=== PATIENT | female | born 1940 | race Two or more races ===

== ENCOUNTER → 2016-09-12 | Day surgery (SDC) | payer OTHER ==
[~2016-09-12] MED LIST: ASPI81CH CHEW; BUPIVACAINE/EPINEPHRINE 0.25% 50 ML VIAL ONE; FLUT50SP EACH NARE; FOSA70TA PO; HYDR25TA5 PO; LACTATED RINGER'S 1000 ML INJ 1,000 ML ONE; LOSA25TA PO; MECL12.574 PO; MIDAZOLAM HCL 2 MG/2 ML VIAL ONE; MIRA33504 PO; MOBI15TA PO; ONDANSETRON HCL 4 MG/2 ML VIAL IV PUSH ONE; PROM12.55 PO; PROPOFOL 100 MG/10 ML INJ IV ONE; TRIAMCINOLONE ACETONIDE 40 MG/ML VIAL ONE; ceFAZolin INJ 1,000 MG VIAL ONE; oxyCODONE/ACETAMINOPHEN 5 MG/325 MG TAB ONE
--- NOTE | 2016-09-12 10:52 | TN ---
cc: RAT SUAZO M.D. DATE OF SURGERY 09/12/2016 PREOPERATIVE DIAGNOSIS 1. Left knee degenerative medial and lateral meniscus tears. 2. Right knee degenerative arthritis POSTOPERATIVE DIAGNOSIS 1. Left knee large medial and lateral meniscal tears. 2. 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 Left knee synovectomy patellofemoral joint and intercondylar notch. 4. Right knee degenerative arthritis. PROCEDURE PERFORMED 1. Left knee arthroscopy with partial medial and lateral meniscectomies. 2. Left knee arthroscopic chondroplasty medial femoral condyle, medial tibial plateau, and patellofemoral joint. 3. Left knee arthroscopic synovectomy patellofemoral joint and intercondylar notch. 4. Right knee injection of local anesthetic and steroid. SURGEON Art Suazo MD ANESTHESIA General via laryngeal mask augmented by local infiltration FLUID REPLACEMENT 800 cc of crystalloid. SPECIMEN No specimens were sent. COUNTS All counts were correct. COMPLICATIONS There were no intraoperative complications. TOURNIQUET TIME 34 minutes at 300 mmHg IMPLANTS No implants were utilized. INDICATIONS FOR THE PROCEDURE Mrs. Wynn is a 76-year-old woman who has had a longstanding history of bilateral degenerative arthritis of the knees worse on the left than the right. She has had limited, but good relief with anti-inflammatory injections in the knee, but continues to have locking sensation of the knee, significant pain medial more than lateral and swelling. We have discussed the options for surgical intervention at this time which include the possibility of ongoing conservative care with intermittent injections, possibility of viscosupplementation, however, she has such pronounced mechanical symptoms that the viscosupplementation would be not likely to be very helpful. Although she is willing to consider joint replacement, I feel as though it is a bit premature due to the fact that she only has what appears to be significant medial disease radiographically and I feel that she will do remarkably better once her meniscal pathology has been addressed. I will also get a better opportunity to stage the degree of arthritis in her knee to make a determination if she is a candidate for viscosupplementation or if we would be better off to avoid further conservative care. She, as well as her daughter, were fully aware of the risks of the procedure including bleeding, infection, neurovascular injury, thromboembolic complications, failure to have relief, possible worsening of her baseline pain and a full written informed consent was obtained. When they came into the surgery center today, they did mention that her right knee has become progressively worse and would like to consider the possibility of a steroid injection while under anesthesia and we went ahead and consented her for that as well. DESCRIPTION OF THE PROCEDURE After the patient was appropriately identified in the holding area, we had correctly marked her left knee for surgery and her right knee for injection. She was given one gram of intravenous Ancef as prophylactic antibiotic and then she was taken into the operating suite. There she was placed under general laryngeal mask anesthetic by Dr. Moctezuma. We went ahead and did a time-out at this point in time where we confirmed that the right knee was for injection and the left knee was for surgery and we went ahead and briefly addressed the right knee first. I triple prepped the lateral aspect of the right knee with alcohol and then the knee was then injected with 3 cc of 0.25% Marcaine with epinephrine and 1 cc of Kenalog. She tolerated it well. A Band-Aid was applied. There was no evidence of any bleeding. Attention was now directed to the left lower extremity. A well-padded thigh-high tourniquet was applied high on the left thigh and then her left leg was prepped with alcohol and Hibiclens and draped in the normal standard fashion including the use of impervious stockinette from the foot all the way up to the mid midportion of the calf. At this time, we went ahead and elevated her left leg and exsanguinated with an Eugene wrap and the tourniquet was raised to 300 mmHg. Standard anteromedial and anterolateral joint line portals were established under direct vision. The scope was introduced. A small effusion was evacuated. Inflow was initiated and a survey of the joint was as follows. The suprapatellar pouch had some chronic appearing synovitis including an inflamed appearing fat pad that was hypertrophic and impinged within the joint space. As a result I elected to debride some of the fat pad. There was some grade 2A & 2B chondromalacia of the patellofemoral joint. Some of the tissue was unstable and it was debrided with an oscillating shaver. I went ahead and followed the tracking of the patella which was relatively midline. I did not see any evidence of a full-thickness cartilage loss anywhere in the anterior aspect of the joint. In the medial compartment, there was a very large macerated displaced tear of the medial meniscus which was involving the majority of the posterior half of the medial meniscus. I went ahead and debrided this with both hand instruments and then further contoured it with a shaver and then although we had a small meniscal rim that remained, there was little ongoing meniscal function. There was chondromalacia grade 3A on the medial tibial plateau on the posterior one-third and chondromalacia grade 3A on the posterior one half of the weightbearing surface of the distal femur. It did not in any way make up the entire weightbearing surface of the knee. Limited chondroplasty was performed in these areas to remove unstable tissue. At this time, the intercondylar notch was now explored. There was an intact anterior cruciate ligament although some of the superficial fibers were frayed and there was some slight attenuation of it. It did tension appropriately with anterior drawer. There was some hypertrophic synovial tissue in the notch which was debrided.The lateral compartment was now entered. There was a large macerated displaced tear of the lateral meniscus that was based more from the midportion of the medial meniscus. The posterior horn was involved as well. I went ahead and debrided it with an oscillating shaver. This did the majority of the debridement, although some of the midbody was contoured with hand instruments. The meniscal rim was larger on the lateral side of the knee and there was essentially no significant chondromalacia on the lateral compartment to speak of. Following the partial meniscectomy, the meniscus did seem to function relatively well and there was no evidence of any loose bodies. At this time, the knee was thoroughly irrigated and suctioned decompressed several times. I reinspected all the compartments again and there was no evidence of any further pathology to be found. The instruments were removed after a final decompression and the incisions were closed with 3-0 nylon simple sutures and 30 cc of 0.25% Marcaine with epinephrine were then infiltrated intraarticularly and subcutaneously for postop pain relief. The wounds were dressed with Xeroform, 4x4s, ABD and Eugene wrap. The tourniquet was let down. There was brisk return of capillary refill and reestablished palpable distal pulses. She awoke from anesthesia and was taken to recovery in stable condition. Appropriate postoperative orders have been written. I am hopeful she will have significant improvement of her baseline symptoms. Art Suazo MD Electronically Signed MD ANETA Lozada/MANAV /10:09 AM /10:38 AM [email or web address]
== END | disposition home or self-care (01) ==
LOC: ESDC 07:06
PROVIDERS: ATTEND Orthopaedic Surgery Sports Medicine
DX: S83.242A Other tear of medial meniscus, current injury, left knee, initial encounter (principal); S83.282A Other tear of lateral meniscus, current injury, left knee, initial encounter; M17.11 Unilateral primary osteoarthritis, right knee; M94.262 Chondromalacia, left knee
CPT/HCPCS: 01400; 20610; 29880; J0690; J2250; J2405; J3010; J3301; J7120

== ENCOUNTER → 2017-01-23 | Day surgery (SDC) | payer OTHER ==
[~2017-01-23] MED LIST changes: -BUPIVACAINE/EPINEPHRINE 0.25% 50 ML VIAL ONE; +BUPIVACAINE/EPINEPHRINE 0.25% PF 30 ML VIAL INFIL ONE; -PROPOFOL 100 MG/10 ML INJ IV ONE; +PROPOFOL 200 MG/20 ML AMP IV ONE; +SENN1TAB17 PO; -TRIAMCINOLONE ACETONIDE 40 MG/ML VIAL ONE; +ZOSTINJ SQ
--- NOTE | 2017-01-23 10:47 | TN ---
cc: SUSIE RANDALL M.D. DATE OF SURGERY: 01/23/2017 PREOPERATIVE DIAGNOSIS Right knee degenerative lateral meniscus tear. POSTOPERATIVE DIAGNOSIS 1. Right knee bucket-handle tear lateral meniscus and degenerative medial meniscus tear. 2. Chondromalacia patellofemoral joint, grade IIB. 3. Chondromalacia medial femoral condyle and medial tibial plateau, grade IIIA. PROCEDURE PERFORMED 1. Right knee arthroscopy with partial medial and lateral meniscectomies including a subtotal lateral meniscectomy. 2. Right knee arthroscopic chondroplasty patellofemoral joint. 3. Right knee arthroscopic limited synovectomy. SURGEON Gabriele. ANESTHESIA General via laryngeal mask augmented by local infiltration. ESTIMATED BLOOD LOSS Minimal. FLUID REPLACEMENT 800 cc crystalloid. IMPLANTS There were no implants utilized. COUNTS All counts were correct. COMPLICATIONS There were no intraoperative complications. TOURNIQUET TIME 41 minutes at 300 mmHg. INDICATIONS FOR THE PROCEDURE Mrs. Darrius Wynn is a 76-year-old woman who has had a longstanding history of right knee pain and mechanical symptoms. She underwent a left knee arthroscopy for debridement four or five months ago with excellent improvement of her discomfort and she has very similar findings on her contralateral right knee. As a result of her persistent knee joint tenderness, worse laterally than medially, she is being taken to the operating room for arthroscopic debridement of the knee. She was aware of the risks, benefits, potential complications and limitations of the procedure and full written informed consent was obtained. She was very well aware that there may be the potential of limited improvement following arthroscopic debridement of the knee but based on her physical examination as well as her MRI findings I feel quite confident that we will be able to give her improvement similar to what she is experiencing on her left knee which continues to do well. DESCRIPTION OF THE PROCEDURE After the patient was appropriately identified in the holding area she correctly marked her right knee and I had initialed it as well. She was given one gram of Ancef as intravenous prophylactic antibiotic. She was then taken to the operating suite where she was placed under general laryngeal mask anesthetic and then her right leg had a well-padded thigh-high tourniquet applied to it. She was then prepped with alcohol and Hibiclens and then draped in normal standard fashion with the use of an impervious stockinette from the foot all the way up to the mid leg. At this time we held a brief time out to confirm the right knee was the correct site and the team was in agreement and the case began. The leg was elevated and exsanguinated with an Eugene wrap and the tourniquet was raised to 300 mmHg. Standard anteromedial and anterolateral joint line portals were established under direct vision. The scope was introduced. A small yellowish effusion was evacuated. Inflow was initiated and survey of the joint was as follows. The suprapatellar pouch had mild hypertrophic synovitis as did the medial and lateral gutters. There was also evidence of chondromalacia of the patellofemoral joint seen both on the trochlear side as well as on the patellar side. Limited chondroplasty of the patellofemoral joint was performed in order to eliminate any of the unstable tissue. The patella continued to track midline throughout the procedure and never had any issues with mal tracking or subluxation. The medial gutter showed no evidence of loose body or synovitis and a degenerative tear of the medial meniscus was seen and excised. There was grade 2B to $ chondromalacia of the femoral condyle and of the tibial palteau. Some areas of unstable tissue were seen and chondroplasty was performed to smooth and remove potentially loose tissue. The intercondylar notch was now explored. The anterior cruciate ligament was seen to be intact. There was some hypertrophic synovial tissue that was on the anterior surface of it but in general it was without evidence of rupture. It tensioned appropriately with anterior drawer. At this time the lateral compartment was now entered. There was difficulty getting good visualization initially and as it turns out there was a bucket-handle tear of the lateral meniscus that was blocking my vision. I went ahead and debrided the unstable tissue and eventually had to use meniscal scissors and large straight meniscal punches in order to release the posterior fragment. Once the large unstable macerated fragment was excised there was further probing done of the posterior portion of the meniscus and it continued to be stable. There was at least 2-3 mm if not more of intact rim anterior to the popliteaus tendon. There was no evidence of any further instability of the remaining rim. The chondral surfaces in the lateral compartment showed primarily grade II changes but nothing that required significant chondroplasty. The lateral gutter region and did not find any evidence of any further pathology or loose bodies. The knee was taken through a range of motion then suctioned decompressed. I felt that there was no further unstable meniscal tissue seen around the anterior horn of the lateral meniscus which was debrided further but it did not leave the anterior third of the tibia fully bare. There was a small rim remaining in this region. The knee was then suctioned decompressed one last time. The instruments were removed. The portals were then closed with 3-0 nylon simple sutures and then 30 cc of 0.25% Marcaine with epinephrine was injected subcutaneously as well as intraarticularly for post-op pain relief. There was no evidence of any active bleeding. The wounds were closed with 3-0 nylon simple sutures prior to the injection itself. The wounds were then dressed with Xeroform, 4x4s, ABDs, foam tape and Eugene wrap applied as well. She was awoken from anesthesia and taken to Recovery in stable condition. Appropriate postoperative orders have been written. Susie Randall MD Electronically Signed Susie Randall MD SIS/BT /10:12 AM /10:29 AM [email or web address]
== END | disposition home or self-care (01) ==
LOC: ESDC 07:36
PROVIDERS: ATTEND Orthopaedic Surgery Sports Medicine
DX: S83.251A Bucket-handle tear of lateral meniscus, current injury, right knee, initial encounter (principal); S83.241A Other tear of medial meniscus, current injury, right knee, initial encounter; M94.261 Chondromalacia, right knee
CPT/HCPCS: 01400; 29880; J0690; J2250; J2405; J3010; J7120